=== PATIENT | male | born 2000 | race Caucasian/White ===

== ENCOUNTER 2020-11-23 21:08 | Emergency (ER) | payer SELFPAY ==
[2020-11-23 21:12] VITALS: BP 130/89; PULSE 107; RESP 18; TEMP 36.3; O2SAT 100
--- NOTE | 2020-11-23 21:39 | ED.GENADULT ---
HPI - General Adult General Chief complaint: Unspecified Stated complaint: DUI/ Wants to speak to doctor Time Seen by Provider: 11/23/20 21:20 Source: patient Mode of arrival: other (Law enforcement) Limitations: no limitations History of Present Illness HPI narrative: A 19-year-old male [facility] blood [facility]. Initially a provider was not going to be seeing him however he stated that he went to see a doctor. When I arrived to the room the patient was belligerent and refusing to answer questions. When I asked him what was wrong he kept citing issues with the Police Department i.e. wanting his possessions back that he was not drunk and did not have a blood draw. I explained to him that I could get involved if he had a medical complaint. Patient did not ever have a specific medical complaint but rather was having issues with the fact that he was being arrested. Related Data Home Medications Medication Instructions Recorded Confirmed alprazolam [Xanax] 1 mg PO BID 11/23/20 11/23/20 Allergies Allergy/AdvReac Type Severity Reaction Status Date / Time amoxicillin Allergy Swelling Verified 11/23/20 21:15 divalproex sodium AdvReac Rash Verified 11/23/20 21:15 [From Depakote] Review of Systems Review of Systems: ROS unobtainable: Yes other (pt very uncooperative and beligerent) [facility] Social History Social History Gender identity (if verbalized by the patient): Male Exam Narrative: Exam Narrative: GENERAL: Well-appearing, well-nourished, and in no acute distress. HEAD: Normocephalic, atraumatic. EYES: PERRLA and EOMI. ENT: Nares clear, no rhinorrhea or epistaxis. Mucous membranes moist. Oropharynx without tonsillar hypertrophy exudate or other lesions. Bilateral TMs pearly shannon nonbulging NECK: Supple. No adenopathy or masses. No carotid bruits or JVD CHEST: Clear to auscultation. No respiratory distress. No wheezes rales or rhonchi HEART: Regular rate and rhythm. No murmur heard. Normal peripheral pulses. ABDOMEN: Soft, nontender, nondistended, normal active bowel sounds. EXTREMITIES: Normal range of motion. No edema. SKIN: Warm, dry, no rash. NEURO: No focal deficits. Alert and oriented x3. PSYCH: Normal mood and affect. Course Vital Signs Vital signs: Vital Signs Temperature 36.3 C L 11/23/20 21:12 Pulse Rate 107 H 11/23/20 21:12 Respiratory Rate 18 11/23/20 21:12 Blood Pressure 130/89 11/23/20 21:12 Pulse Oximetry 100 11/23/20 21:12 Temperature 36.3 C L 11/23/20 21:12 Pulse Rate 107 H 11/23/20 21:12 Respiratory Rate 18 11/23/20 21:12 Blood Pressure 130/89 11/23/20 21:12 Pulse Oximetry 100 11/23/20 21:12 Medical Decision Making MDM Narrative Medical decision making narrative: In brief this 19-year-old male came into the emergency department originally as a legal blood draw. Provider did not need to see him however once he arrived the patient was absolutely insistent that he see a doctor. When I saw him he had no medical complaints whatsoever. Patient was only complaining of making alleging statements about the arresting officer. I told him of there was no need for me to get involved as these were not medical complaints and the patient was released to police custody. Vital Signs Vital Signs: Vital Signs Temperature 36.3 C L 11/23/20 21:12 Pulse Rate 107 H 11/23/20 21:12 Respiratory Rate 18 11/23/20 21:12 Blood Pressure 130/89 11/23/20 21:12 Pulse Oximetry 100 11/23/20 21:12 Temperature 36.3 C L 11/23/20 21:12 Pulse Rate 107 H 11/23/20 21:12 Respiratory Rate 18 11/23/20 21:12 Blood Pressure 130/89 11/23/20 21:12 Pulse Oximetry 100 11/23/20 21:12 Discharge Plan Discharge Clinical Impression: Alcohol intoxication Patient Disposition: Home, Self-Care Condition: Improved Instructions: Antibiotic Form, Abuse of Alc
--- NOTE | 2020-11-23 22:07 | PC.NURSE ---
while drawing pts blood, pt kept stating you dont know how hard i can punch obviously, i can punch so hard, im going to punch you if you dont move. im going to run out of this hospital room. i want to speak to the highest level of management in this place. im going to get you, you, and him fired. pt proceeded to point to this rn, yordan rn, and the officer in the room. then pt states you guys are going to be jobless, have fun being poor! pt also stating i need a phone now! i need to call my baby mama right now! elissa police communications operator in room attempting to calm pt.
== END 2020-11-23 22:18 ==
PROVIDERS: Emergency Provider Emergency Medicine
DX: F10.129 Alcohol abuse with intoxication, unspecified (principal); Y90.9 Presence of alcohol in blood, level not specified
CPT/HCPCS: 99281